=== PATIENT | female | born 1975 | race Caucasian/White ===

== ENCOUNTER 2020-09-06 14:17 | Emergency (ER) | payer OTHER ==
[~2020-09-06] VITALS: Ht 160 cm; Wt 86.2 kg
[2020-09-06 15:54] VITALS: BP 120/67
[2020-09-06] MEDS ORDERED: LIDOCAINE 1% HCL (LOCAL ANESTH.) INJ 20ML MDV ONE (16:24)
== END 2020-09-06 16:57 | disposition home or self-care (01) ==
LOC: ER 14:17 → EDBD 14:17 → ER 16:57
DX: S61.211A Laceration without foreign body of left index finger without damage to nail, initial encounter (principal); W26.0XXA Contact with knife, initial encounter; Y93.89 Activity, other specified; Y92.89 Other specified places as the place of occurrence of the external cause; Y99.8 Other external cause status
CPT/HCPCS: 12002; 99283; J2001

== ENCOUNTER 2024-01-22 23:13 | Emergency (ER) | payer OTHER ==
[~2024-01-22] VITALS: Ht 160 cm; Wt 90.0 kg
[2024-01-22 23:15] VITALS: BP 112/85; PULSE 138; RESP 16; O2SAT 97
== END 2024-01-24 07:33 | disposition home or self-care (01) ==
LOC: EDBD 23:13 → ER 23:13
DX: F10.10 Alcohol abuse, uncomplicated (principal)

== ENCOUNTER 2024-02-05 10:11 | Emergency (ER) | payer OTHER ==
[~2024-02-05] VITALS: Ht 157.5 cm; Wt 86.3 kg
[2024-02-05 10:35] VITALS: TEMP 98; O2SAT 96
[2024-02-05] MEDS: ONDANSETRON ODT 4 MG TAB PO ONE (11:28)
[2024-02-05] MEDS: ONDANSETRON HCL 4 MG/2 ML VIAL IV ONE (11:28)
[2024-02-05] MEDS: LORazepam 2MG/ML-1ML VIAL IV ONE (11:28)
[2024-02-05] MEDS: SODIUM CHLORIDE 0.9% 1,000 ML IV ONE (11:28)
[2024-02-05] MEDS: MAALOX PLUS or MAALOX 30 ML PO ONE (11:28)
[2024-02-05] MEDS: MULTIPLE VITAMIN TAB PO ONE (13:00)
[2024-02-05] MEDS: THIAMINE 100mg/ml INJ (200mg/2ml VIAL) IV ONE (13:00)
[2024-02-05] MEDS ORDERED: FOLIC ACID 1 MG TAB PO SCH (13:00)
[2024-02-05] MEDS ORDERED: CHL10C PO (13:35)
[2024-02-05] MEDS: SODIUM CHLORIDE 0.9% 500 ML IV ONE (13:37)
[2024-02-05] MEDS: FOLIC ACID 1 MG TAB PO ONE (13:46)
[2024-02-05 13:47] VITALS: RESP 20
[2024-02-05 14:25] VITALS: BP 108/65; PULSE 103; O2SAT 95
[2024-02-06] MEDS ORDERED: FOLIC ACID 1 MG TAB PO SCH (10:00)
== END 2024-02-05 15:17 | disposition home or self-care (01) ==
LOC: EDBD 10:11 → ER 10:23
DX: F10.239 Alcohol dependence with withdrawal, unspecified (principal); R11.2 Nausea with vomiting, unspecified; Y90.8 Blood alcohol level of 240 mg/100 ml or more
CPT/HCPCS: 96361; 96374; 96375; 99285; J2060; J2405; J3411; J7030; J7040

== ENCOUNTER 2024-07-21 18:21 | Emergency (ER) | payer OTHER ==
[~2024-07-21] VITALS: Ht 162.6 cm; Wt 90.0 kg
[~2024-07-21 18:21] MED LIST: CHL10C PO
--- NOTE | 2024-07-21 18:49 | ED.PDOC ---
History of Present Illness HPI Comments 49-year-old female who came to ER for alcohol intoxication. Patient known heavy alcohol drinker. Was said to be drinking alcohol daily for the past week. Was seen by her today heavily intoxicated with alcohol the paramedics were called. No other history could be obtain at this time of care Chief Complaint: ETOH Time Seen by MD: 18:48 Primary Care Provider: JUANY Kirkpatrick Notes: Restoration Officer Notes Allergies: Coded Allergies: NO KNOWN ALLERGIES (Unverified , 09/06/20) Home Meds Active Scripts Chlordiazepoxide Hcl (Ni-1) (I (Librium) 10 Mg Cap, 20 MG PO Q6HR for 5 Days, #40 CAP Prov:STERLING MATHIS MD 02/05/24 Information Source: Emergency Med Personnel Mode of Arrival: EMS Severity: Moderate Timing: Days Duration: Since onset Prehospital treatment: None Past Medical History PAST MEDICAL HISTORY: Denies Surgical History: MUSEUM SECURITY CHIEF History: No Pertinent MUSEUM SECURITY CHIEF History Family History Family History: Reviewed,noncontributory to illness Social History Smoker: Non-Smoker Alcohol: Heavy Drugs: Denies Drug Use Lives In: Home Unable to Obtain due to: Other (Intoxicated with alcohol) Physical Exam General Appearance: No Apparent Distress, Normal HEENT: Normal ENT Inspection, Pharynx Normal, TMs Normal Neck: Full Range of Motion, Non-Tender, Normal, Normal Inspection Respiratory: Chest Non-Tender, Lungs Clear, No Accessory Muscle Use, No Respir atory Distress, Normal Breath Sounds Cardiovascular: No Edema, No JVD, No Murmur, No Gallop, Normal Peripheral Pulses, Regular Rate/Rhythm Breast Exam: Deferred Gastrointestinal: No Organomegaly, Non Tender, No Pulsatile Mass, Normal Bowel Sounds, Soft Genitalia: Deferred Pelvic: Deferred Rectal: Deferred Extremities: No calf tenderness, Normal capillary refill, Normal inspection, Normal range of motion, Non-tender, No pedal edema Musculoskeletal : Apperance: Normal Neurologic: Alert, propulsion engineer II-XII nml as Tested, No Motor Deficits, Normal Affect, Normal Mood, No Sensory Deficits Cerebellar Function: Normal Reflexes: Normal Skin: Dry, Normal Color, Warm Lymphatic: No Adenopathy Was a procedure done? Was a procedure done?: No Differential Dx Considerations may include: Alcohol intoxication, electrolyte imbalance, dehydration X-Ray, Labs, Meds, VS Vital Signs Date Time Temp Pulse Resp B/P (MAP) Pulse Ox O2 Delivery O2 Flow Rate FiO2 07/21/24 23:13 117 19 119/79 (92) 99 07/21/24 18:45 98.1 110 20 126/74 (91) 98 Lab Test 07/21/24 23:26 Range/Units White Blood Count 14.9 H 4.4-10.8 10^3/uL Red Blood Count 4.81 4.0-5.20 10^6/uL Hemoglobin 14.2 12.2-16.2 g/dL Hematocrit 43.2 36.0-46.0 % Mean Corpuscular Volume 90.0 80.0-100.0 fL Mean Corpuscular Hemoglobin 29.5 28.0-32.0 pg Mean Corpuscular Hemoglobin Concent 32.8 32.0-36.0 g/dL Red Cell Distribution Width 15.6 H 11.8-14.3 % Platelet Count 294 140-450 10^3/uL Mean Platelet Volume 6.9 6.9-10.8 fL Neutrophils (%) (Auto) 75.4 37.0-80.0 % Lymphocytes (%) (Auto) 18.1 10.0-50.0 % Monocytes (%) (Auto) 6.0 0.0-12.0 % Eosinophils (%) (Auto) 0.2 0.0-7.0 % Basophils (%) (Auto) 0.3 0.0-2.0 % Neutrophils # (Auto) 11.2 H 1.6-8.6 10 ^3/uL Lymphocytes # (Auto) 2.7 0.4-5.4 10 ^3/uL Monocytes # (Auto) 0.9 0-1.3 10 ^3/uL Eosinophils # (Auto) 0 0-0.8 10 ^3/uL Basophils # (Auto) 0 0-0.2 10 ^3/uL Nucleated Red Blood Cells 0.0 % Sodium Level 140 136-145 mmol/L Potassium Level 4.3 3.5-5.1 mmol/L Chloride Level 103 98-107 mmol/L Carbon Dioxide Level 20 20-31 mmol/L Anion Gap 17 H 5-15 Blood Urea Nitrogen 10 9-23 mg/dL Creatinine 0.78 0.550-1.02 mg/dL Glomerular Filtration Rate Calc 92 >90 mL/min BUN/Creatinine Ratio 12.8 10.0-20.0 Serum Glucose 135 H 74-106 mg/dL Calcium Level 8.9 8.7-10.4 mg/dL Plasma/Serum Blood Alcohol 287.5 H <10 mg/dL Time of 1ST Reevaluation: 18:47 Reevaluation 1ST: Unchanged Patient Education/Counseling: Diagnosis, Treatment Family Education/Counseling: No Family Present Departure 1 Departure Time of Disposition: 03:02 (Patient presenting with alcohol intoxication. Patient's came to pick patient up and they eloped from the ER) Impression: Primary Impression: Alcohol abuse Disposition: 07 LEFT AWOL/ELOPED Condition: Serious Critical Care Note Critical Care Time?: No Stability Stability form required: No Heart Score Heart Score: Heart Score Response (Comments) Value History N/A 0 EKG N/A 0 Age N/A 0 Risk Factors N/A 0 Troponin N/A 0 Total 0 I personally scribed for CESAR HOLLIS MD ([email or web address]) on 07/21/24 at 18:49. Electronically submitted by Fernie Carrington ([email or web address]). CESAR HOLLIS MD Jul 21, 2024 18:49
[2024-07-21 23:13] VITALS: BP 119/79; PULSE 117; RESP 19; O2SAT 99
[2024-07-21] MEDS ORDERED: chlordiazePOXIDE HCL 25 MG CAP PO ONE (23:15)
[2024-07-21 23:49] LABS: Basophils # (auto) 0 10 ^3/uL (0-0.2); Basophils % (auto) 0.3 % (0.0-2.0); Eosinophils # (auto) 0 10 ^3/uL (0-0.8); Eosinophils % (auto) 0.2 % (0.0-7.0); Hematocrit 43.2 % (36.0-46.0); Hemoglobin 14.2 g/dL (12.2-16.2); Lymphocytes # (auto) 2.7 10 ^3/uL (0.4-5.4); Lymphocytes % (auto) 18.1 % (10.0-50.0); Mean Corpuscular Hemoglobin 29.5 pg (28.0-32.0); Mean Corpuscular Hgb Conc. 32.8 g/dL (32.0-36.0); Monocytes # (auto) 0.9 10 ^3/uL (0-1.3); Neutrophils # (auto) 11.2 10 ^3/uL (1.6-8.6); Neutrophils % (auto) 75.4 % (37.0-80.0); Platelet Count (auto) 294 10^3/uL (140-450); Red Blood Cells 4.81 10^6/uL (4.0-5.20); Red Cell Distribution Width 15.6 % (11.8-14.3); White Blood Cell 14.9 10^3/uL (4.4-10.8)
[2024-07-22 00:05] LABS: Chloride 103 mmol/L (98-107); Potassium 4.3 mmol/L (3.5-5.1); Sodium 140 mmol/L (136-145)
[2024-07-22 00:06] LABS: Anion Gap 17 (5-15); Calcium 8.9 mg/dL (8.7-10.4)
[2024-07-22 00:11] LABS: BUN/Creatinine Ratio 12.8 (10.0-20.0); Blood Alcohol 287.5 mg/dL (<10); Blood Urea Nitrogen 10 mg/dL (9-23)
[2024-07-22 00:22] LABS: Carbon Dioxide 20 mmol/L (20-31); Glucose 135 mg/dL (74-106)
== END 2024-07-22 00:15 | disposition left against medical advice (07) ==
LOC: ER 18:21 → EDUNIT# 18:21 → EDBD 18:21 → ER 07-22 00:15
DX: F10.129 Alcohol abuse with intoxication, unspecified (principal); Z98.890 Other specified postprocedural states
CPT/HCPCS: 36415; 80048; 80320; 85025

== ENCOUNTER 2024-09-01 15:13 | Emergency (ER) | payer OTHER ==
[~2024-09-01] VITALS: Ht 162.6 cm; Wt 90.0 kg
--- NOTE | 2024-09-01 17:55 | ED.PDOC ---
History of Present Illness HPI Comments Patient brought in by EMS. States she was having anxiety at home started at noon. Anxiety became too much for her so she started drinking alcohol. Drank a half pt of vodka. States she was one month sober from alcohol. She was now feeling very down about relapsing. States she has plans to be taken to recovery home tomorrow. Chief Complaint: ETOH Time Seen by MD: 16:02 Primary Care Provider: JUANY Reviewed Notes: Nurses Notes Allergies: Coded Allergies: NO KNOWN ALLERGIES (Unverified , 09/06/20) Home Meds Active Scripts Chlordiazepoxide Hcl (Ni-1) (I (Librium) 10 Mg Cap, 20 MG PO Q6HR for 5 Days, #40 CAP Prov:STERLING MATHIS MD 02/05/24 Information Source: Patient Mode of Arrival: EMS Severity: Mild Past Medical History PAST MEDICAL HISTORY: Denies Surgical History: EXTERNAL RELATIONS MANAGER History: No Pertinent EXTERNAL RELATIONS MANAGER History Family History Family History: Reviewed,noncontributory to illness Social History Smoker: Non-Smoker Alcohol: Heavy Drugs: Denies Drug Use Lives In: Home Constitutional: denies: chills, diaphoresis, fatigue, fever, malaise, sweats, weakness, others EENTM: denies: blurred vision, double vision, ear bleeding, ear discharge, ear drainage, ear pain, ear ringing, eye pain, eye redness, hearing loss, mouth pain, mouth swelling, nasal discharge, nose bleeding, nose congestion, nose pain, photophobia, tearing, throat pain, throat swelling, voice changes, others Respiratory: denies: cough, hemoptysis, orthopnea, SOB at rest, shortness of breath, SOB with excertion, stridor, wheezing, others Cardiovascular: denies: chest pain, dizzy spells, diaphoresis, Dyspnea on exertion, edema, irregular heart beat, left arm pain, lightheadedness, palpitations, PND, syncope, others Gastrointestinal: denies: abdomen distended, abdominal pain, blood streaked bowels, constipated, diarrhea, dysphagia, difficulty swallowing, hematemesis, melena, nausea, poor appetite, poor fluid intake, rectal bleeding, rectal pain, vomiting, others Genitourinary: denies: abnormal vagina bleeding, burning, dyspareunia, dysuria, flank pain, frequency, hematuria, incontinence, pain, , vagina discharge, urgency, others Neurological: denies: dizziness, fainting, headache, left sided numbness, left sided weakness, numbness, paresthesia, pre-existing deficit, right sided numbness, right sided weakness, seizure, speech problems, tingling, tremors, weakness, others Musculoskeletal: denies: back pain, gout, joint pain, joint swelling, muscle pain, muscle stiffness, neck pain, others Integumetry: denies: bruises, change in color, change in hair/nails, dryness, laceration, lesions, lumps, rash, wounds, others Allergic/Immunocompromised: denies: Difficulty Healing, Frequent Infections, Hives, Itching, others Hematologic/Lymphatic: denies: anemia, blood clots, easy bleeding, easy bruising, swollen glands, others Physical Exam General Appearance: No Apparent Distress, Normal HEENT: Normal ENT Inspection, Pharynx Normal, TMs Normal Neck: Full Range of Motion, Non-Tender, Normal, Normal Inspection Respiratory: Chest Non-Tender, Lungs Clear, No Accessory Muscle Use, No Respiratory Distress, Normal Breath Sounds Cardiovascular: No Edema, No JVD, No Murmur, No Gallop, Normal Peripheral Pulses, Regular Rate/Rhythm Breast Exam: Deferred Gastrointestinal: No Organomegaly, Non Tender, No Pulsatile Mass, Normal Bowel Sounds, Soft Genitalia: Deferred Pelvic: Deferred Rectal: Deferred Extremities: No calf tenderness, Normal capillary refill, Normal inspection, Normal range of motion, Non-tender, No pedal edema Musculoskeletal : Apperance: Normal Neurologic: Alert, modern languages professor II-XII nml as Tested, No Motor Deficits, Normal Affect, Normal Mood, No Sensory Deficits Cerebellar Function: Normal Reflexes: Normal Skin: Dry, Normal Color, Warm Lymphatic: No Adenopathy Was a procedure done? Was a procedure done?: No Differential Dx Considerations may include: ETOH intoxication, anxiety, panic attack X-Ray, Labs, Meds, VS Vital Signs Date Time Temp Pulse Resp B/P (MAP) Pulse Ox O2 Delivery O2 Flow Rate FiO2 09/01/24 15:35 98.0 124 22 137/98 (111) 99 X-Ray, Labs, Meds, VS Comment Imaging: X-rays and CT scans were reviewed and interpreted by this provider, imaging shows no fractures and no pathological disease. Pending radiology review. Laboratory: Labs reviewed and interpreted by this provider. No significant abnormalities noted. Patient has prior medical visits reviewed. Med reconciliation performed Vital signs reviewed Time of 1ST Reevaluation: 17:55 Reevaluation 1ST: Improved Patient Education/Counseling: Diagnosis, Treatment, Need For Follow Up (Patient advised to follow-up in the emergency room in the next 24 to 48 hours if symptoms do not improve. Advised follow-up with PCP in the next 3 to 5 days. Patient verbalized understanding. ) Family Education/Counseling: Diagnosis Departure 1 Departure Time of Disposition: 17:55 Impression: Primary Impression: Alcohol abuse Disposition: 01 HOME / SELF CARE / HOMELESS Condition: Fair Discharged With: Self Critical Care Note Critical Care Time?: No Stability Stability form required: No Heart Score Heart Score: Heart Score Response (Comments) Value History N/A 0 EKG N/A 0 Age N/A 0 Risk Factors N/A 0 Troponin N/A 0 Total 0 JHON CARRILLO Sep 01, 2024 17:55
[2024-09-01] MEDS: ALPRAZolam 0.5 MG TAB PO ONE (18:07)
[2024-09-01 18:09] VITALS: BP 126/69; PULSE 105; RESP 22; TEMP 98.4; O2SAT 99
== END 2024-09-01 18:22 | disposition home or self-care (01) ==
LOC: EDBD 15:13 → ER 15:13
DX: F10.10 Alcohol abuse, uncomplicated (principal); Z98.890 Other specified postprocedural states

== ENCOUNTER 2024-11-01 19:10 | Emergency (ER) | payer OTHER ==
[~2024-11-01] VITALS: Ht 172.7 cm; Wt 90.3 kg
--- NOTE | 2024-11-01 19:27 | ECG ---
[facility] Test Date: 2024-11-01 Test Time: 19:13:22 Pat Name: SANDY HOLM Department: ED Room: Gender: F High Pressure Boiler Operator: PAPITO : 1975 Requested By: RASHEED MCKENNA Order Number: [id number] Reading MD: Bandar Garcia Measurements Intervals [place] Rate: 104 P: 72 MO: 141 QRS: 68 QRSD: 79 T: 32 QT: 334 QTc: 440 Interpretive Statements Sinus tachycardia Borderline T abnormalities, anterior leads Electronically Signed On 11-02-2024 12:49:02 PDT by Bandar Garcia Please click the below link to view image of tracing.
[2024-11-01] MEDS: LOPERAMIDE HCL 2 MG CAP/TAB PO ONE (19:30)
[2024-11-01] MEDS: ONDANSETRON ODT 4 MG TAB PO ONE (19:30)
--- NOTE | 2024-11-01 19:31 | ED.PDOC ---
History of Present Illness HPI Comments 49-year-old female complains of dull right parasternal chest pain for the last 3 days with some upper abdominal pain and nausea and diarrhea. Patient states that she �relapsed� and abused alcohol and smoked possibly some methamphetamines over the last 3 days and this seemed to make the symptoms worse Chief Complaint: Chest Pain Time Seen by MD: 19:15 Primary Care Provider: JUANY Kirkpatrick Notes: Commercial Lease Administrator Notes Allergies: Coded Allergies: NO KNOWN ALLERGIES (Unverified , 09/06/20) Home Meds Active Scripts Chlordiazepoxide Hcl (Ni-1) (I (Librium) 10 Mg Cap, 20 MG PO Q6HR for 5 Days, #40 CAP Prov:STERLING MATHIS MD 02/05/24 Information Source: Patient, Emergency Med Personnel Mode of Arrival: EMS Severity: Moderate Timing: Days Duration: Since onset Prehospital treatment: 12 Lead EKG Past Medical History PAST MEDICAL HISTORY: Denies Surgical History: HEALTH FACILITIES SURVEYOR History: No Pertinent HEALTH FACILITIES SURVEYOR History Family History Family History: Reviewed,noncontributory to illness Social History Smoker: Non-Smoker Alcohol: Heavy Drugs: Denies Drug Use Lives In: Home Constitutional: reports: malaise Cardiovascular: reports: chest pain Gastrointestinal: reports: diarrhea, nausea All Other Systems: Reviewed and Negative Physical Exam General Appearance: Mild Distress, Obese HEENT: Normal ENT Inspection, Pharynx Normal, TMs Normal Neck: Full Range of Motion, Non-Tender, Normal, Normal Inspection Respiratory: Chest Non-Tender, Lungs Clear, No Accessory Muscle Use, No Respiratory Distress, Normal Breath Sounds Cardiovascular: No Edema, No JVD, No Murmur, No Gallop, Normal Peripheral Pulses, Regular Rate/Rhythm Breast Exam: Deferred Gastrointestinal: No Organomegaly, Non Tender, No Pulsatile Mass, Normal Bowel Sounds, Soft Genitalia: Deferred Pelvic: Deferred Rectal: Deferred Extremities: No calf tenderness, Normal capillary refill, Normal inspection, Normal range of motion, Non-tender, No pedal edema Musculoskeletal : Apperance: Normal Neurologic: Alert, paradichlorobenzene tender II-XII nml as Tested, No Motor Deficits, Normal Affect, Normal Mood, No Sensory Deficits Cerebellar Function: Normal Reflexes: Normal Skin: Dry, Normal Color, Warm Lymphatic: No Adenopathy Was a procedure done? Was a procedure done?: No EKG EKG : Cardiac Rhythm: NSR Differential Dx Considerations may include: Differential diagnosis includes but not limited to: angina, myocardial infarction, pulmonary embolus, pleurisy, musculoskeletal etiology and others X-Ray, Labs, Meds, VS Vital Signs Date Time Temp Pulse Resp B/P (MAP) Pulse Ox O2 Delivery O2 Flow Rate FiO2 11/01/24 19:23 98.1 115 20 131/93 (106) 100 98.1 11/01/24 19:13 104 Lab Test 11/01/24 20:50 11/01/24 19:39 Range/Units Troponin I High Sensitivity 10 11 </=34 ng/L White Blood Count 7.4 4.4-10.8 10^3/uL Red Blood Count 4.61 4.0-5.20 10^6/uL Hemoglobin 14.1 12.2-16.2 g/dL Hematocrit 39.8 36.0-46.0 % Mean Corpuscular Volume 86.4 80.0-100.0 fL Mean Corpuscular Hemoglobin 30.6 28.0-32.0 pg Mean Corpuscular Hemoglobin Concent 35.4 32.0-36.0 g/dL Red Cell Distribution Width 16.2 H 11.8-14.3 % Platelet Count 288 140-450 10^3/uL Mean Platelet Volume 7.6 6.9-10.8 fL Neutrophils (%) (Auto) 56.4 37.0-80.0 % Lymphocytes (%) (Auto) 30.8 10.0-50.0 % Monocytes (%) (Auto) 11.8 0.0-12.0 % Eosinophils (%) (Auto) 0.2 0.0-7.0 % Basophils (%) (Auto) 0.8 0.0-2.0 % Neutrophils # (Auto) 4.1 1.6-8.6 10 ^3/uL Lymphocytes # (Auto) 2.3 0.4-5.4 10 ^3/uL Monocytes # (Auto) 0.9 0-1.3 10 ^3/uL Eosinophils # (Auto) 0 0-0.8 10 ^3/uL Basophils # (Auto) 0.1 0-0.2 10 ^3/uL Nucleated Red Blood Cells 0.1 % Sodium Level 144 136-145 mmol/L Potassium Level 4.0 3.5-5.1 mmol/L Chloride Level 105 98-107 mmol/L Carbon Dioxide Level 26 20-31 mmol/L Anion Gap 13 5-15 Blood Urea Nitrogen 12 9-23 mg/dL Creatinine 0.84 0.550-1.02 mg/dL Glomerular Filtration Rate Calc 85 >90 mL/min BUN/Creatinine Ratio 14.3 10.0-20.0 Serum Glucose 100 74-106 mg/dL Calcium Level 10.2 8.7-10.4 mg/dL Total Bilirubin 2.4 H 0.2-1.0 mg/dL Aspartate Amino Transferase (AST) 27 13-40 U/L Alanine Aminotransferase (ALT) 19 7-40 U/L Alkaline Phosphatase 116 46-116 U/L Total Protein 7.8 5.7-8.2 g/dL Albumin 5.2 H 3.2-4.8 g/dL Lipase 32 12-53 U/L Time of 1ST Reevaluation: 19:30 Reevaluation 1ST: Unchanged Patient Education/Counseling: Diagnosis, Treatment Family Education/Counseling: No Family Present Departure 1 Departure Time of Disposition: 23:13 Impression: Primary Impression: Chest pain Additional Impressions: Alcohol abuse Diarrhea Disposition: LEFT AWOL/ELOPED Condition: Stable Discharged With: Self Critical Care Note Critical Care Time?: No Stability Stability form required: No Heart Score Heart Score: Heart Score Response (Comments) Value History Slightly Suspicious 0 EKG Normal 0 Age 45-64 1 Risk Factors 1 or 2 risk factors 1 Troponin Normal limit 0 Total 2 RASHEED MCKENNA MD November 01, 2024 19:31
[2024-11-01 19:52] LABS: Basophils # (auto) 0.1 10 ^3/uL (0-0.2); Basophils % (auto) 0.8 % (0.0-2.0); Eosinophils # (auto) 0 10 ^3/uL (0-0.8); Eosinophils % (auto) 0.2 % (0.0-7.0); Hematocrit 39.8 % (36.0-46.0); Hemoglobin 14.1 g/dL (12.2-16.2); Lymphocytes # (auto) 2.3 10 ^3/uL (0.4-5.4); Lymphocytes % (auto) 30.8 % (10.0-50.0); Mean Corpuscular Hemoglobin 30.6 pg (28.0-32.0); Mean Corpuscular Hgb Conc. 35.4 g/dL (32.0-36.0); Mean Corpuscular Volume 86.4 fL (80.0-100.0); Monocytes # (auto) 0.9 10 ^3/uL (0-1.3); Monocytes % (auto) 11.8 % (0.0-12.0); Neutrophils # (auto) 4.1 10 ^3/uL (1.6-8.6); Neutrophils % (auto) 56.4 % (37.0-80.0); Nucleated Red Blood Cells % 0.1 %; Platelet Count (auto) 288 10^3/uL (140-450); Red Blood Cells 4.61 10^6/uL (4.0-5.20); Red Cell Distribution Width 16.2 % (11.8-14.3); White Blood Cell 7.4 10^3/uL (4.4-10.8)
[2024-11-01 20:05] LABS: Alanine Aminotransferase 19 U/L (7-40); Anion Gap 13 (5-15); Aspartate Aminotransferase 27 U/L (13-40); BUN/Creatinine Ratio 14.3 (10.0-20.0); Blood Urea Nitrogen 12 mg/dL (9-23); Calcium 10.2 mg/dL (8.7-10.4); Carbon Dioxide 26 mmol/L (20-31); Chloride 105 mmol/L (98-107); Glucose 100 mg/dL (74-106); Lipase 32 U/L (12-53); Sodium 144 mmol/L (136-145); Total Protein 7.8 g/dL (5.7-8.2)
[2024-11-01 20:14] LABS: Albumin 5.2 g/dL (3.2-4.8); Alkaline Phosphatase 116 U/L (46-116); Bilirubin, Total 2.4 mg/dL (0.2-1.0)
[2024-11-02] MEDS ORDERED: LOPE2CAP16 PO (00:03)
[2024-11-02 06:40] VITALS: BP 98/65; PULSE 108; RESP 20; TEMP 97.9; O2SAT 98
== END 2024-11-02 06:45 | disposition home or self-care (01) ==
LOC: EDBD 19:10 → ER 19:10
DX: F10.10 Alcohol abuse, uncomplicated (principal); R07.9 Chest pain, unspecified; R19.7 Diarrhea, unspecified; Z98.890 Other specified postprocedural states; Z79.899 Other long term (current) drug therapy; Y90.9 Presence of alcohol in blood, level not specified
CPT/HCPCS: 36415; 80053; 83690; 84484; 85025; 93005; 99284; Q0162